=== PATIENT | male | born 1950 | race Caucasian/White ===

== ENCOUNTER 2016-10-17 16:54 | Emergency (ER) | payer MEDICARE, OTHER ==
[~2016-10-17] VITALS: Ht 182.9 cm; Wt 108.9 kg
[~2016-10-17 16:54] MED LIST: ASPI-407 PO; ASPI81CH43; ASPITAB37 PO; DICL100T2 PO; FLUT50SP13; LACT12CR17 EX; LORA10CA7 PO; NyQuil; TRAZ50TA2 PO; TRIA0.1C5 EX; ZOLP-158; [UNRECOGNIZED DRUG - CODE] PO
[2016-10-17 18:34] VITALS: BP 139/86
== END 2016-10-17 20:30 | disposition home or self-care (01) ==
LOC: ER 17:09 → EDUNIT# 17:09 → ER 20:30
DX: M54.16 Radiculopathy, lumbar region (principal); M54.5 Low back pain; G89.29 Other chronic pain
CPT/HCPCS: 72100

== ENCOUNTER → 2017-12-29 | Outpatient (CLI) | payer MEDICARE, OTHER ==
[~2017-12-29] MED LIST changes: -DICL100T2 PO; +DICL100T4 PO; +TRIA0.1C4 EX; -TRIA0.1C5 EX
[2017-12-29 10:55] LABS: Basophils # (auto) 0.1 uL; Eosinophils # (auto) 0.2 uL; Eosinophils % (auto) 4.7 % (0.0-7.0); Hematocrit 48.3 % (41.0-53.0); Hemoglobin 16.4 g/dL (13.5-17.5); Lymphocytes # (auto) 1.4 uL; Lymphocytes % (auto) 26.9 % (10.0-50.0); Mean Corpuscular Hemoglobin 30.4 pg (28.0-32.0); Mean Corpuscular Volume 89.6 fL (80.0-100.0); Monocytes # (auto) 0.4 uL; Monocytes % (auto) 7.2 % (0.0-12.0); Neutrophils # (auto) 3.2 uL; Neutrophils % (auto) 60.2 % (37.0-80.0); Nucleated Red Blood Cells % 0.1 %; Platelet Count (auto) 223 10^3/uL (140-450); Red Blood Cells 5.39 10^6/uL (4.5-5.90); Red Cell Distribution Width 13.3 % (11.8-14.3); White Blood Cell 5.3 10^3/uL (4.4-10.8)
[2017-12-29 11:36] LABS: BUN/Creatinine Ratio 11.7; Calcium 9.2 mg/dL (8.5-10.1); Potassium 4.1 mmol/L (3.5-5.1); Total Protein 7.7 g/dL (6.4-8.2)
[2017-12-29 11:40] LABS: Free T4 (Free Thyroxine) 1.08 ng/dL (0.89-1.76); Prostate Specific Antigen 0.81 ng/mL (0.0-4.0)
== END | disposition home or self-care (01) ==
LOC: LAB 10:30
PROVIDERS: ATTEND Internal Medicine
DX: N40.0 Benign prostatic hyperplasia without lower urinary tract symptoms (principal); M25.50 Pain in unspecified joint; R53.83 Other fatigue; Z79.82 Long term (current) use of aspirin; Z79.899 Other long term (current) drug therapy
CPT/HCPCS: 36415; 80053; 80061; 84153; 84439; 84443; 85025; 85652

== ENCOUNTER 2018-02-05 08:54 | Day surgery (SDC) | payer MEDICARE, OTHER ==
[2018-02-02 15:06] LABS: Basophils # (auto) 0.1 uL; Basophils % (auto) 1.2 % (0.0-2.0); Eosinophils # (auto) 0.2 uL; Eosinophils % (auto) 4.4 % (0.0-7.0); Hematocrit 46.9 % (41.0-53.0); Hemoglobin 15.7 g/dL (13.5-17.5); Lymphocytes # (auto) 1.6 uL; Lymphocytes % (auto) 33.1 % (10.0-50.0); Mean Corpuscular Hemoglobin 30.2 pg (28.0-32.0); Mean Corpuscular Hgb Conc. 33.4 g/dL (32.0-36.0); Mean Corpuscular Volume 90.4 fL (80.0-100.0); Monocytes # (auto) 0.4 uL; Monocytes % (auto) 7.7 % (0.0-12.0); Neutrophils # (auto) 2.5 uL; Neutrophils % (auto) 53.6 % (37.0-80.0); Platelet Count (auto) 204 10^3/uL (140-450); Red Blood Cells 5.19 10^6/uL (4.5-5.90); Red Cell Distribution Width 13.4 % (11.8-14.3); White Blood Cell 4.7 10^3/uL (4.4-10.8)
[2018-02-02 15:20] LABS: INR 0.98 (0.9-1.15); Partial Thromboplastin Time 27.4 sec (22.64-33.71); Prothrombin Time 10.7 sec (9.37-12.3)
[~2018-02-05] VITALS: Ht 182.9 cm; Wt 107.5 kg
[~2018-02-05 08:54] MED LIST changes: -ASPI-407 PO; -ASPI81CH43; -ASPITAB37 PO; -LACT12CR17 EX; -LORA10CA7 PO; +MULTCAP OR; -NyQuil; +OME20T PO; +PHEN1LIQ39 PO; -TRAZ50TA2 PO; -TRIA0.1C4 EX; -ZOLP-158
[2018-02-05] MEDS ORDERED: SODIUM CHLORIDE LOCK 10 ML ONE (09:03)
[2018-02-05] MEDS ORDERED: diphenhdrAMINE HCL 50 MG/1 ML VL ONE (09:04)
[2018-02-05] MEDS: MIDAZOLAM HCL 5 MG/ML-1ML VIAL ONE ×3 (09:57→10:09)
[2018-02-05] MEDS: fentaNYL CITRATE 100 MCG/2 ML VL ONE ×3 (09:57→10:09)
[2018-02-05] MEDS ORDERED: SIMETHICONE 40 MG/0.6 ML ORAL DROP ONE (10:12)
[2018-02-05 10:46] VITALS: BP 142/83
== END 2018-02-05 10:58 | disposition home or self-care (01) ==
LOC: GI 08:54
PROVIDERS: ATTEND Internal Medicine Gastroenterology
DX: Z12.11 Encounter for screening for malignant neoplasm of colon (principal); K57.30 Diverticulosis of large intestine without perforation or abscess without bleeding; K64.8 Other hemorrhoids; E66.9 Obesity, unspecified; Z68.32 Body mass index [BMI] 32.0-32.9, adult; Z87.891 Personal history of nicotine dependence; Z90.49 Acquired absence of other specified parts of digestive tract
CPT/HCPCS: 36415; 85025; 85610; 85730; J1200; J2250; J3010; J7030; G0121; G0500

== ENCOUNTER → 2018-05-04 | Outpatient (CLI) | payer MEDICARE, OTHER ==
[2018-05-04 15:38] LABS: Urine Bacteria NONE SEEN /hpf (None Seen); Urine Blood Negative /uL (Negative); Urine Mucus FEW (None Seen); Urine Specific Gravity 1.005 (1.001-1.035); Urine WBC <1 /hpf (0 - 3)
== END | disposition home or self-care (01) ==
LOC: LAB 15:17
PROVIDERS: ATTEND Internal Medicine
DX: N40.0 Benign prostatic hyperplasia without lower urinary tract symptoms (principal)
CPT/HCPCS: 81001

== ENCOUNTER → 2019-04-19 | Outpatient (CLI) | payer MEDICARE, OTHER ==
[~2019-04-19] MED LIST changes: -DICL100T4 PO; +DICL100T5 PO
[2019-04-19 10:52] LABS: Basophils # (auto) 0 uL; Eosinophils # (auto) 0.1 uL; Eosinophils % (auto) 2.9 % (0.0-7.0); Hematocrit 47.2 % (41.0-53.0); Hemoglobin 15.9 g/dL (13.5-17.5); Lymphocytes # (auto) 1.6 uL; Lymphocytes % (auto) 32.3 % (10.0-50.0); Mean Corpuscular Hemoglobin 30.6 pg (28.0-32.0); Mean Corpuscular Hgb Conc. 33.7 g/dL (32.0-36.0); Mean Corpuscular Volume 90.9 fL (80.0-100.0); Monocytes # (auto) 0.4 uL; Monocytes % (auto) 7.4 % (0.0-12.0); Neutrophils # (auto) 2.8 uL; Neutrophils % (auto) 56.4 % (37.0-80.0); Platelet Count (auto) 204 10^3/uL (140-450); Red Blood Cells 5.19 10^6/uL (4.5-5.90); Red Cell Distribution Width 13.7 % (11.8-14.3); White Blood Cell 4.9 10^3/uL (4.4-10.8)
[2019-04-19 11:02] LABS: Urine Bacteria NONE SEEN /hpf (None Seen); Urine Blood Negative /uL (Negative); Urine Mucus FEW (None Seen); Urine Specific Gravity 1.021 (1.001-1.035); Urine WBC <1 /hpf (0 - 3)
[2019-04-19 11:17] LABS: Potassium 3.9 mmol/L (3.5-5.1)
[2019-04-19 11:49] LABS: Free T4 (Free Thyroxine) 1.02 ng/dL (0.89-1.76); Prostate Specific Antigen 1.02 ng/mL (0.0-4.0)
[2019-04-19 11:50] LABS: Albumin 3.9 g/dL (3.4-5.0); BUN/Creatinine Ratio 9.1; Bilirubin, Total 0.8 mg/dL (0.2-1.0); Calcium 9.1 mg/dL (8.5-10.1); Total Protein 7.5 g/dL (6.4-8.2)
== END | disposition home or self-care (01) ==
LOC: LAB 10:07
PROVIDERS: ATTEND Internal Medicine
DX: N39.43 Post-void dribbling (principal); R53.83 Other fatigue; N28.1 Cyst of kidney, acquired; N40.0 Benign prostatic hyperplasia without lower urinary tract symptoms; R79.89 Other specified abnormal findings of blood chemistry
CPT/HCPCS: 36415; 80053; 80061; 81001; 84153; 84439; 84443; 85025; 85652

== ENCOUNTER → 2019-08-22 | Outpatient (CLI) | payer MEDICARE, OTHER ==
[~2019-08-22] MED LIST changes: +MULT-830 OR; -MULTCAP OR
[2019-08-22 12:10] LABS: Urine Bacteria None Seen /hpf (None Seen); Urine WBC None Seen /hpf (0 - 3)
[2019-08-22 12:41] LABS: Basophils # (auto) 0 uL; Basophils % (auto) 0.8 % (0.0-2.0); Eosinophils # (auto) 0.2 uL; Eosinophils % (auto) 3.8 % (0.0-7.0); Hematocrit 45.8 % (41.0-53.0); Hemoglobin 15.5 g/dL (13.5-17.5); Lymphocytes # (auto) 1.7 uL; Lymphocytes % (auto) 28.6 % (10.0-50.0); Mean Corpuscular Hemoglobin 30.4 pg (28.0-32.0); Mean Corpuscular Hgb Conc. 33.8 g/dL (32.0-36.0); Monocytes # (auto) 0.4 uL; Monocytes % (auto) 6.7 % (0.0-12.0); Neutrophils # (auto) 3.5 uL; Neutrophils % (auto) 60.1 % (37.0-80.0); Nucleated Red Blood Cells % 0.1 %; Platelet Count (auto) 205 10^3/uL (140-450); Red Blood Cells 5.09 10^6/uL (4.5-5.90); Red Cell Distribution Width 13.2 % (11.8-14.3); White Blood Cell 5.9 10^3/uL (4.4-10.8)
[2019-08-22 13:00] LABS: INR 1.05 (0.9-1.15)
[2019-08-22 13:18] LABS: Urine Blood Negative /uL (Negative)
[2019-08-22 13:46] LABS: Potassium 4.3 mmol/L (3.5-5.1)
[2019-08-22 13:56] LABS: Albumin 4.1 g/dL (3.4-5.0); BUN/Creatinine Ratio 19.6; Bilirubin, Total 0.8 mg/dL (0.2-1.0); Calcium 8.8 mg/dL (8.5-10.1); Total Protein 7.2 g/dL (6.4-8.2)
== END | disposition home or self-care (01) ==
LOC: LAB 11:39
PROVIDERS: ATTEND Internal Medicine
DX: Z01.812 Encounter for preprocedural laboratory examination (principal); M17.10 Unilateral primary osteoarthritis, unspecified knee
CPT/HCPCS: 36415; 80053; 81001; 85025; 85610; 85652; 86900; 86901

== ENCOUNTER → 2019-08-23 | Outpatient (CLI) | payer MEDICARE, OTHER | END | disposition home or self-care (01) | LOC: Rad HDHVI 12:53 | PROVIDERS: ATTEND Internal Medicine Cardiovascular Disease | DX: R00.2 Palpitations (principal); R07.9 Chest pain, unspecified | CPT/HCPCS: 93306 ==

== ENCOUNTER → 2020-01-02 | Outpatient (CLI) | payer MEDICARE, OTHER ==
[2020-01-02 16:04] LABS: Basophils # (auto) 0.1 10 ^3/uL (0-0.2); Eosinophils # (auto) 0.3 10 ^3/uL (0-0.8); Eosinophils % (auto) 5.2 % (0.0-7.0); Hematocrit 41.8 % (41.0-53.0); Lymphocytes # (auto) 1.4 10 ^3/uL (0.4-5.4); Mean Corpuscular Hgb Conc. 33.5 g/dL (32.0-36.0); Mean Corpuscular Volume 86.6 fL (80.0-100.0); Monocytes # (auto) 0.4 10 ^3/uL (0-1.3); Monocytes % (auto) 7.3 % (0.0-12.0); Neutrophils # (auto) 3.1 10 ^3/uL (1.6-8.6); Neutrophils % (auto) 60.5 % (37.0-80.0); Nucleated Red Blood Cells % 0.1 %; Platelet Count (auto) 231 10^3/uL (140-450); Red Blood Cells 4.83 10^6/uL (4.5-5.90); Red Cell Distribution Width 13.8 % (11.8-14.3); White Blood Cell 5.2 10^3/uL (4.4-10.8)
[2020-01-02 16:21] LABS: Albumin 3.6 g/dL (3.4-5.0); Calcium 8.7 mg/dL (8.5-10.1); Potassium 3.9 mmol/L (3.5-5.1)
[2020-01-02 16:25] LABS: BUN/Creatinine Ratio 12.1; Bilirubin, Total 0.5 mg/dL (0.2-1.0); Total Protein 7.5 g/dL (6.4-8.2)
== END | disposition home or self-care (01) ==
LOC: LAB 15:24
PROVIDERS: ATTEND Internal Medicine
DX: R06.00 Dyspnea, unspecified (principal); R53.83 Other fatigue
CPT/HCPCS: 36415; 80053; 85025; 85379; 85652

== ENCOUNTER 2020-01-03 14:52 | Inpatient (IN) | payer MEDICARE, OTHER ==
[~2020-01-03] VITALS: Ht 182.9 cm; Wt 89.6 kg
[2020-01-03 15:45] LABS: Basophils # (auto) 0.1 10 ^3/uL (0-0.2); Basophils % (auto) 1.1 % (0.0-2.0); Eosinophils # (auto) 0.2 10 ^3/uL (0-0.8); Eosinophils % (auto) 4.4 % (0.0-7.0); Hemoglobin 14.3 g/dL (13.5-17.5); Lymphocytes # (auto) 1.3 10 ^3/uL (0.4-5.4); Lymphocytes % (auto) 25.9 % (10.0-50.0); Mean Corpuscular Hemoglobin 29.4 pg (28.0-32.0); Mean Corpuscular Hgb Conc. 33.9 g/dL (32.0-36.0); Mean Corpuscular Volume 86.7 fL (80.0-100.0); Monocytes # (auto) 0.4 10 ^3/uL (0-1.3); Monocytes % (auto) 7.1 % (0.0-12.0); Neutrophils # (auto) 3.1 10 ^3/uL (1.6-8.6); Neutrophils % (auto) 61.5 % (37.0-80.0); Nucleated Red Blood Cells % 0.1 %; Platelet Count (auto) 220 10^3/uL (140-450); Red Blood Cells 4.84 10^6/uL (4.5-5.90); Red Cell Distribution Width 14.2 % (11.8-14.3)
[2020-01-03 16:07] LABS: Albumin 3.5 g/dL (3.4-5.0); Anion Gap 9 (5-15); Blood Urea Nitrogen 14 mg/dL (7-18); Calcium 8.6 mg/dL (8.5-10.1); Carbon Dioxide 24 mmol/L (21-32); Chloride 108 mmol/L (98-107); Glucose 115 mg/dL (74-106); Potassium 3.7 mmol/L (3.5-5.1); Sodium 141 mmol/L (136-145)
[2020-01-03 16:09] LABS: Alanine Aminotransferase 18 U/L (16-61); Aspartate Aminotransferase 15 U/L (15-37); BUN/Creatinine Ratio 16.5; GFR African American 114 mL/min; GFR Non-African American 94 mL/min
[2020-01-03 16:14] LABS: Alkaline Phosphatase 92 U/L (45-117); Bilirubin, Total 0.8 mg/dL (0.2-1.0); Total Protein 7.2 g/dL (6.4-8.2)
[2020-01-03] MEDS ORDERED: ASCORBIC ACID 500 MG TAB PO ONE (16:45)
[2020-01-03] MEDS ORDERED: cefTRIAXone 1GM/50ML D5W 50 ML IV ONE (16:45)
[2020-01-03] MEDS ORDERED: AZITHROMYCIN 500MG/ 250ML 250 ML IV ONE (16:45)
[2020-01-03] MEDS ORDERED: ZINC SULFATE 220mg CAP or TAB PO ONE (16:45)
[2020-01-03] MEDS ORDERED: NITROGLYCERIN 0.4 MG SL TAB SL PRN ×2 (17:15→19:45)
[2020-01-03] MEDS ORDERED: MORPHINE SULF INJ 2 MG/ML SYRINGE 1ML IV PRN (17:15)
[2020-01-03 18:15] LABS: INR 1.05 (0.9-1.15); Partial Thromboplastin Time 29.1 sec (23.64-32.05)
[2020-01-03 18:54] VITALS: BP 126/86
[2020-01-03] MEDS: SODIUM CHLORIDE 0.9% 1,000 ML IV SCH (19:42)
[2020-01-03] MEDS ORDERED: ONDANSETRON HCL 4 MG/2 ML VIAL IV PRN (19:45)
[2020-01-03] MEDS ORDERED: ACETAMINOPHEN 500 MG TAB PO PRN (19:45)
[2020-01-03] MEDS ORDERED: LORazepam 0.5 MG TAB PO PRN (19:45)
[2020-01-03] MEDS ORDERED: HYDROcodone-ACET 5/325MG TAB PO PRN (19:45)
[2020-01-03] MEDS ORDERED: DEXTROSE (50%) 50ML SYRG IV PRN (19:45)
[2020-01-03 21:00] VITALS: BP 133/83
[2020-01-03] MEDS: ATORVASTATIN 20 MG TAB PO SCH (21:03)
[2020-01-03] MEDS: ACCU-CHEK COMFORT CURVE STRIP VI SCH (21:04)
[2020-01-03] MEDS: METOPROLOL TARTRATE 25 MG TAB PO SCH (21:04)
[2020-01-03] MEDS ORDERED: InsuLIN REG 1unit/0.01ml Soln (100units/ml) SC SCH (22:00)
[2020-01-03] MEDS ORDERED: ALBUTEROL SULF HFA 90MCG INH 200DOSE IN SCH (22:00)
[2020-01-03 23:45] LABS: Basophils # (auto) 0 10 ^3/uL (0-0.2); Basophils % (auto) 0.9 % (0.0-2.0); Eosinophils # (auto) 0.2 10 ^3/uL (0-0.8); Eosinophils % (auto) 4.6 % (0.0-7.0); Hematocrit 43.2 % (41.0-53.0); Hemoglobin 14.6 g/dL (13.5-17.5); Lymphocytes # (auto) 1.4 10 ^3/uL (0.4-5.4); Lymphocytes % (auto) 27.8 % (10.0-50.0); Mean Corpuscular Hemoglobin 29.2 pg (28.0-32.0); Mean Corpuscular Hgb Conc. 33.7 g/dL (32.0-36.0); Mean Corpuscular Volume 86.7 fL (80.0-100.0); Monocytes # (auto) 0.4 10 ^3/uL (0-1.3); Monocytes % (auto) 7.5 % (0.0-12.0); Neutrophils # (auto) 2.9 10 ^3/uL (1.6-8.6); Neutrophils % (auto) 59.2 % (37.0-80.0); Platelet Count (auto) 205 10^3/uL (140-450); Red Blood Cells 4.99 10^6/uL (4.5-5.90); Red Cell Distribution Width 14.1 % (11.8-14.3)
[2020-01-03 23:53] LABS: Urine WBC None Seen /hpf (0 - 3)
[2020-01-03 23:58] LABS: Urine Specific Gravity 1.004 (1.001-1.035)
[2020-01-03 23:59] LABS: Urine Bacteria NONE SEEN /hpf (None Seen); Urine Blood Negative /uL (Negative); Urine Mucus FEW (None Seen)
[2020-01-04] VITALS: BP 123/82
[2020-01-04 00:01] LABS: Albumin 3.5 g/dL (3.4-5.0); Calcium 8.6 mg/dL (8.5-10.1); Magnesium 2.2 mg/dL (1.6-2.6); Potassium 3.5 mmol/L (3.5-5.1)
[2020-01-04 00:14] LABS: BUN/Creatinine Ratio 17.1; Bilirubin, Total 0.4 mg/dL (0.2-1.0); CRP High Sensitivity 0.15 mg/dL (< 0.3); Total Protein 7.3 g/dL (6.4-8.2)
[2020-01-04 05:00] VITALS: BP_SYST 123; BP_SYST 129; BP_DIAS 82; BP_DIAS 85
[2020-01-04] MEDS: ACCU-CHEK COMFORT CURVE STRIP VI SCH (06:00)
[2020-01-04 06:45] LABS: Basophils # (auto) 0.1 10 ^3/uL (0-0.2); Eosinophils # (auto) 0.3 10 ^3/uL (0-0.8); Eosinophils % (auto) 5.4 % (0.0-7.0); Lymphocytes # (auto) 1.7 10 ^3/uL (0.4-5.4); Lymphocytes % (auto) 32.1 % (10.0-50.0); Mean Corpuscular Hemoglobin 29.4 pg (28.0-32.0); Mean Corpuscular Hgb Conc. 33.5 g/dL (32.0-36.0); Mean Corpuscular Volume 87.9 fL (80.0-100.0); Monocytes # (auto) 0.4 10 ^3/uL (0-1.3); Monocytes % (auto) 7.5 % (0.0-12.0); Neutrophils # (auto) 2.8 10 ^3/uL (1.6-8.6); Nucleated Red Blood Cells % 0.1 %; Platelet Count (auto) 213 10^3/uL (140-450); Red Blood Cells 4.77 10^6/uL (4.5-5.90); Red Cell Distribution Width 14.6 % (11.8-14.3); White Blood Cell 5.2 10^3/uL (4.4-10.8)
[2020-01-04] MEDS ORDERED: InsuLIN REG 1unit/0.01ml Soln (100units/ml) SC SCH (07:00)
[2020-01-04 07:37] LABS: BUN/Creatinine Ratio 16.3; Bilirubin, Total 0.7 mg/dL (0.2-1.0); Calcium 8.3 mg/dL (8.5-10.1); Phosphorus 3.1 mg/dL (2.5-4.90); Potassium 3.5 mmol/L (3.5-5.1)
[2020-01-04 07:38] LABS: Albumin 3.2 g/dL (3.4-5.0); CRP High Sensitivity 0.139 mg/dL (< 0.3); Magnesium 2.5 mg/dL (1.6-2.6)
[2020-01-04] MEDS: cefTRIAXone 1GM/50ML D5W 50 ML IV SCH (09:10)
[2020-01-04] MEDS: ASPirin 81 mg TAB PO SCH (09:11)
[2020-01-04] MEDS: DOCUSATE SOD 100 MG CAP PO SCH (09:11)
[2020-01-04] MEDS: METOPROLOL TARTRATE 25 MG TAB PO SCH ×2 (09:14→22:00)
[2020-01-04] MEDS: ENOXAPARIN SOD 40 MG/0.4 ML SYRINGE SC SCH (09:14)
[2020-01-04] MEDS ORDERED: CHOLECALCIFEROL (VITD3) 1,000IU=25mCg TAB PO SCH (10:00)
[2020-01-04] MEDS ORDERED: AZITHROMYCIN 500MG/D5WorNS 250ml IV SCH (10:00)
[2020-01-04] MEDS ORDERED: ZINC SULFATE 220mg CAP or TAB PO SCH (10:00)
[2020-01-04] MEDS ORDERED: ASCORBIC ACID 1,000 MG TAB PO SCH (10:00)
[2020-01-04] MEDS: SODIUM CHLORIDE 0.9% 1,000 ML IV SCH (10:24)
[2020-01-04 12:00] VITALS: BP 120/74
[2020-01-04] MEDS ORDERED: IOHEXOL 350 MG/ML 100ML IJ ONE (17:30)
[2020-01-04 17:47] VITALS: BP 122/75
[2020-01-04] MEDS: ATORVASTATIN 20 MG TAB PO SCH (21:28)
[2020-01-04 22:00] VITALS: BP 118/80
[2020-01-05 05:00] VITALS: BP 116/74
[2020-01-05 09:00] VITALS: BP 129/89
[2020-01-05] MEDS: METOPROLOL TARTRATE 25 MG TAB PO SCH ×2 (09:45→21:57)
[2020-01-05] MEDS: ENOXAPARIN SOD 40 MG/0.4 ML SYRINGE SC SCH (09:45)
[2020-01-05] MEDS: DOCUSATE SOD 100 MG CAP PO SCH (09:45)
[2020-01-05] MEDS: ASPirin 81 mg TAB PO SCH (09:45)
[2020-01-05] MEDS: cefTRIAXone 1GM/50ML D5W 50 ML IV SCH (09:45)
[2020-01-05] MEDS: AZITHROMYCIN 500MG/ 250ML 250 ML IV SCH (10:28)
[2020-01-05] MEDS ORDERED: ALBUTEROL SULF 2.5 MG/0.5ML(0.5%) NEB SOLN NEB PRN (12:15)
[2020-01-05] MEDS ORDERED: IPRATROPIUM BROM 0.5 MG/2.5ML INH SOL NEB PRN (12:15)
[2020-01-05 13:00] VITALS: BP 116/74
[2020-01-05 17:00] VITALS: BP 113/85
[2020-01-05 21:35] VITALS: BP 129/86
[2020-01-05 21:41] VITALS: BP 129/86
[2020-01-05] MEDS: ATORVASTATIN 20 MG TAB PO SCH (21:56)
[2020-01-05 22:01] LABS: Alcohol, Urine < 3.0 mg/dL (0-5); Amphetamine Screen, Urine NEGATIVE (NEGATIVE); Barbiturate Scree,Urine NEGATIVE (NEGATIVE); Benzodiazephine Screen, Urine NEGATIVE (NEGATIVE); Cannabinoid Screen, Urine NEGATIVE (NEGATIVE); Cocaine Screen, Urine NEGATIVE (NEGATIVE); Opiate Scree,Urine NEGATIVE (NEGATIVE); Phencyclidine Screen, Urine NEGATIVE (NEGATIVE)
[2020-01-06 05:00] VITALS: BP 125/85
[2020-01-06 08:33] VITALS: BP 102/71
[2020-01-06] MEDS: cefTRIAXone 1GM/50ML D5W 50 ML IV SCH (09:31)
[2020-01-06] MEDS: DOCUSATE SOD 100 MG CAP PO SCH (09:32)
[2020-01-06] MEDS: ENOXAPARIN SOD 40 MG/0.4 ML SYRINGE SC SCH (09:32)
[2020-01-06] MEDS: ASPirin 81 mg TAB PO SCH (09:33)
[2020-01-06] MEDS: METOPROLOL TARTRATE 25 MG TAB PO SCH (09:33)
[2020-01-06] MEDS: AZITHROMYCIN 500MG/ 250ML 250 ML IV SCH (10:30)
[2020-01-06 10:57] LABS: Folate (Folic Acid) > 24.00 ng/mL (5.38-24)
[2020-01-06] MEDS ORDERED: MELA3TAB42 OR (12:09)
[2020-01-06] MEDS ORDERED: IBUP400T21 PO (12:10)
[2020-01-06 12:54] VITALS: BP 109/74
[2020-01-06 13:00] VITALS: BP 109/74
== END 2020-01-06 14:02 | disposition home or self-care (01) | DRG 190 ==
LOC: ER 14:52 → TELE 14:53 → TELE-EAST 18:21 → TELE-CENTR 01-04 14:30
PROVIDERS: ADMIT Hospitalist; ATTEND Family Medicine
DX: J44.0 Chronic obstructive pulmonary disease with (acute) lower respiratory infection (principal); J15.9 Unspecified bacterial pneumonia; J98.11 Atelectasis; J44.1 Chronic obstructive pulmonary disease with (acute) exacerbation; Z96.653 Presence of artificial knee joint, bilateral; I10 Essential (primary) hypertension; Z87.891 Personal history of nicotine dependence; Z03.818 Encounter for observation for suspected exposure to other biological agents ruled out; G89.29 Other chronic pain
CPT/HCPCS: 36415; 71045; 71250; 71275; 80053; 80061; 80307; 81001; 82728; 82746; 82962; 83036; 83605; 83615; 83735; 83880; 84100; 84443; 84484; 85025; 85379; 85610; 85652; 85730; 86141; 87040; 87070; 87086; 87804; 87880; 93005; 93970; G0378; J0696

== ENCOUNTER → 2020-06-01 | Outpatient (CLI) | payer MEDICARE, OTHER ==
[~2020-06-01] MED LIST changes: -DICL100T5 PO; +IBUP400T21 PO; +MELA3TAB42 OR; -OME20T PO; -[UNRECOGNIZED DRUG - CODE] PO
[2020-06-01 15:57] LABS: Urine Bacteria NONE SEEN /hpf (None Seen); Urine Blood Negative /uL (Negative); Urine Specific Gravity 1.013 (1.001-1.035); Urine WBC 1 /hpf (0 - 3)
== END | disposition home or self-care (01) ==
LOC: LAB 15:13
PROVIDERS: ATTEND Internal Medicine
DX: R35.1 Nocturia (principal)
CPT/HCPCS: 81001; 84153

== ENCOUNTER → 2020-07-17 | Day surgery (SDC) | payer MEDICARE, OTHER ==
[2020-07-14 13:08] LABS: Basophils # (auto) 0.1 10 ^3/uL (0-0.2); Eosinophils # (auto) 0.3 10 ^3/uL (0-0.8); Eosinophils % (auto) 6.1 % (0.0-7.0); Hematocrit 45.7 % (41.0-53.0); Hemoglobin 15.4 g/dL (13.5-17.5); Lymphocytes # (auto) 1.5 10 ^3/uL (0.4-5.4); Lymphocytes % (auto) 30.1 % (10.0-50.0); Mean Corpuscular Hemoglobin 30.4 pg (28.0-32.0); Mean Corpuscular Hgb Conc. 33.8 g/dL (32.0-36.0); Monocytes # (auto) 0.4 10 ^3/uL (0-1.3); Neutrophils # (auto) 2.7 10 ^3/uL (1.6-8.6); Neutrophils % (auto) 54.8 % (37.0-80.0); Nucleated Red Blood Cells % 0.1 %; Platelet Count (auto) 214 10^3/uL (140-450); Red Blood Cells 5.08 10^6/uL (4.5-5.90); Red Cell Distribution Width 13.8 % (11.8-14.3)
[2020-07-14 13:13] LABS: Urine Bacteria NONE SEEN /hpf (None Seen); Urine Blood Negative /uL (Negative); Urine Mucus FEW (None Seen); Urine Specific Gravity 1.021 (1.001-1.035); Urine WBC 1 /hpf (0 - 3)
[2020-07-14 13:24] LABS: INR 1.03 (0.9-1.15); Partial Thromboplastin Time 27.6 sec (23.0-31.2)
[2020-07-14 13:48] LABS: Calcium 8.7 mg/dL (8.5-10.1); Potassium 3.8 mmol/L (3.5-5.1)
[2020-07-14 13:52] LABS: BUN/Creatinine Ratio 15.6; Bilirubin, Total 0.6 mg/dL (0.2-1.0); Total Protein 7.3 g/dL (6.4-8.2)
[~2020-07-17] VITALS: Ht 182.9 cm; Wt 99.3 kg
[~2020-07-17] MED LIST changes: +ASPI-543 PO; -FLUT50SP13; +GLYCOPYRROLATE 0.2 MG/ML 1ML VIAL ONE; +HYDROmorphone HCL 2 MG/ML VL IV PRN; -IBUP400T21 PO; +LIDOCAINE 1% HCL (LOCAL ANESTH.) INJ 20ML MDV ONE; +LIDOCAINE 2% (LOCAL ANESTH.) PF 5ml SDV ONE; -MELA3TAB42 OR; +MIDAZOLAM HCL 1MG/1ML-2 ML VIAL ONE; +ONDANSETRON HCL 4 MG/2 ML VIAL IV PRN; +ONDANSETRON HCL 4 MG/2 ML VIAL ONE; -PHEN1LIQ39 PO; +PROPOFOL 10 MG/ML 20 ML IV ONE; +ceFAZolin 1GM/50ML 50 ML IV ONE
[2020-07-17 10:45] VITALS: BP 141/86
== END | disposition home or self-care (01) ==
LOC: SUR 05:54
PROVIDERS: ATTEND Surgery
DX: I83.891 Varicose veins of right lower extremity with other complications (principal); G47.30 Sleep apnea, unspecified; F32.9 Major depressive disorder, single episode, unspecified; Z90.49 Acquired absence of other specified parts of digestive tract; Z87.891 Personal history of nicotine dependence; Z79.82 Long term (current) use of aspirin; Z98.890 Other specified postprocedural states; Z79.899 Other long term (current) drug therapy; Z20.828 Contact with and (suspected) exposure to other viral communicable diseases
CPT/HCPCS: 36415; 37785; 80053; 81001; 85025; 85610; 85730; 87426; J0690; J2001; J2250; J2405; J2704; J7030

== ENCOUNTER → 2022-04-27 | Outpatient (CLI) | payer MEDICARE, OTHER ==
[~2022-04-27] MED LIST changes: -GLYCOPYRROLATE 0.2 MG/ML 1ML VIAL ONE; -HYDROmorphone HCL 2 MG/ML VL IV PRN; -LIDOCAINE 1% HCL (LOCAL ANESTH.) INJ 20ML MDV ONE; -LIDOCAINE 2% (LOCAL ANESTH.) PF 5ml SDV ONE; -MIDAZOLAM HCL 1MG/1ML-2 ML VIAL ONE; -ONDANSETRON HCL 4 MG/2 ML VIAL IV PRN; -ONDANSETRON HCL 4 MG/2 ML VIAL ONE; -PROPOFOL 10 MG/ML 20 ML IV ONE; -ceFAZolin 1GM/50ML 50 ML IV ONE
[2022-04-27 12:30] LABS: Basophils # (auto) 0 10 ^3/uL (0-0.2); Eosinophils # (auto) 0.3 10 ^3/uL (0-0.8); Eosinophils % (auto) 7.1 % (0.0-7.0); Hematocrit 44.1 % (41.0-53.0); Hemoglobin 14.2 g/dL (13.5-17.5); Lymphocytes # (auto) 1.1 10 ^3/uL (0.4-5.4); Lymphocytes % (auto) 30.4 % (10.0-50.0); Mean Corpuscular Hemoglobin 29.3 pg (28.0-32.0); Mean Corpuscular Hgb Conc. 32.2 g/dL (32.0-36.0); Monocytes # (auto) 0.2 10 ^3/uL (0-1.3); Monocytes % (auto) 6.7 % (0.0-12.0); Neutrophils % (auto) 54.8 % (37.0-80.0); Red Blood Cells 4.85 10^6/uL (4.5-5.90); Red Cell Distribution Width 14.1 % (11.8-14.3); White Blood Cell 3.6 10^3/uL (4.4-10.8)
[2022-04-27 12:41] LABS: Urine Bacteria NONE SEEN /hpf (None Seen); Urine Blood Negative /uL (Negative); Urine Mucus FEW (None Seen); Urine Specific Gravity 1.021 (1.001-1.035); Urine WBC 1 /hpf (0 - 3)
[2022-04-27 12:56] LABS: BUN/Creatinine Ratio 12.8; Calcium 9.2 mg/dL (8.5-10.1); Potassium 4.9 mmol/L (3.5-5.1)
[2022-04-27 13:00] LABS: Bilirubin, Total 1.3 mg/dL (0.2-1.0); Total Protein 7.2 g/dL (6.4-8.2)
[2022-04-27 13:56] LABS: Free T4 (Free Thyroxine) 0.93 ng/dL (0.89-1.76)
[2022-04-27 13:57] LABS: Prostate Specific Antigen 1.02 ng/mL (0.0-4.0)
== END | disposition home or self-care (01) ==
LOC: LAB 12:13
PROVIDERS: ATTEND Internal Medicine
DX: N40.0 Benign prostatic hyperplasia without lower urinary tract symptoms (principal); I83.90 Asymptomatic varicose veins of unspecified lower extremity; M54.50 Low back pain, unspecified; I10 Essential (primary) hypertension
CPT/HCPCS: 36415; 80053; 80061; 81001; 82550; 82607; 84153; 84439; 84443; 85025; 85652

== ENCOUNTER → 2022-05-25 | Outpatient (CLI) | payer MEDICARE, OTHER ==
[2022-05-25 14:59] LABS: Basophils # (auto) 0 10 ^3/uL (0-0.2); Eosinophils # (auto) 0.3 10 ^3/uL (0-0.8); Eosinophils % (auto) 6.3 % (0.0-7.0); Hematocrit 45.1 % (41.0-53.0); Hemoglobin 14.7 g/dL (13.5-17.5); Lymphocytes % (auto) 24.4 % (10.0-50.0); Mean Corpuscular Hemoglobin 29.3 pg (28.0-32.0); Mean Corpuscular Hgb Conc. 32.5 g/dL (32.0-36.0); Mean Corpuscular Volume 90.1 fL (80.0-100.0); Monocytes # (auto) 0.3 10 ^3/uL (0-1.3); Monocytes % (auto) 7.5 % (0.0-12.0); Neutrophils # (auto) 2.5 10 ^3/uL (1.6-8.6); Neutrophils % (auto) 60.8 % (37.0-80.0); White Blood Cell 4.2 10^3/uL (4.4-10.8)
== END | disposition home or self-care (01) ==
LOC: LAB 14:38
PROVIDERS: ATTEND Internal Medicine
DX: D72.819 Decreased white blood cell count, unspecified (principal)
CPT/HCPCS: 36415; 83615; 85025

== ENCOUNTER → 2022-11-17 | Outpatient (CLI) | payer MEDICARE, OTHER | END | disposition home or self-care (01) | LOC: Rad HDHVI 14:32 | PROVIDERS: ATTEND Internal Medicine Cardiovascular Disease | DX: R00.1 Bradycardia, unspecified (principal); R94.31 Abnormal electrocardiogram [ECG] [EKG] | CPT/HCPCS: 93306 ==

== ENCOUNTER → 2022-11-18 | Outpatient (CLI) | payer MEDICARE, OTHER ==
[~2022-11-18] VITALS: Ht 182.9 cm; Wt 83.5 kg
== END | disposition home or self-care (01) ==
LOC: Rad HDHVI 08:23
PROVIDERS: ATTEND Internal Medicine Cardiovascular Disease
DX: Z01.810 Encounter for preprocedural cardiovascular examination (principal); E78.5 Hyperlipidemia, unspecified; E78.00 Pure hypercholesterolemia, unspecified
CPT/HCPCS: 78452; 93017; 96374; A9500

== ENCOUNTER 2022-12-21 08:27 | Day surgery (SDC) | payer MEDICARE, OTHER ==
[2022-12-19 16:04] LABS: Urine WBC None Seen /hpf (0 - 3)
[2022-12-19 16:07] LABS: Basophils # (auto) 0 10 ^3/uL (0-0.2); Basophils % (auto) 0.9 % (0.0-2.0); Eosinophils # (auto) 0.2 10 ^3/uL (0-0.8); Eosinophils % (auto) 4.9 % (0.0-7.0); Hematocrit 42.9 % (41.0-53.0); Hemoglobin 14.3 g/dL (13.5-17.5); Lymphocytes # (auto) 1.2 10 ^3/uL (0.4-5.4); Mean Corpuscular Hemoglobin 30.1 pg (28.0-32.0); Mean Corpuscular Hgb Conc. 33.3 g/dL (32.0-36.0); Mean Corpuscular Volume 90.4 fL (80.0-100.0); Monocytes # (auto) 0.3 10 ^3/uL (0-1.3); Monocytes % (auto) 7.1 % (0.0-12.0); Neutrophils # (auto) 2.1 10 ^3/uL (1.6-8.6); Neutrophils % (auto) 55.1 % (37.0-80.0); Nucleated Red Blood Cells % 0.1 %; Red Blood Cells 4.75 10^6/uL (4.5-5.90); Red Cell Distribution Width 13.8 % (11.8-14.3); White Blood Cell 3.9 10^3/uL (4.4-10.8)
[2022-12-19 16:37] LABS: INR 1.08 (0.9-1.15); Partial Thromboplastin Time 30.5 sec (24.6-33.4)
[2022-12-19 16:52] LABS: Albumin 3.8 g/dL (3.4-5.0); Potassium 3.9 mmol/L (3.5-5.1)
[2022-12-19 16:58] LABS: Urine Bacteria NONE SEEN /hpf (None Seen); Urine Blood Negative /uL (Negative); Urine Specific Gravity 1.008 (1.001-1.035)
[2022-12-19 17:01] LABS: BUN/Creatinine Ratio 15.9 (10.0-20.0); Bilirubin, Total 0.6 mg/dL (0.2-1.0); Total Protein 7.6 g/dL (6.4-8.2)
[~2022-12-21] VITALS: Ht 182.9 cm; Wt 83.5 kg
[~2022-12-21 08:27] MED LIST changes: -ASPI-543 PO; +BUPIVACAINE IMPLANT 3x100mg IL ONE; +LACT10SO3 PO; +MELA3TAB27 PO; +MULT1POW PO; +TRIA0.02 EX
[2022-12-21] MEDS ORDERED: LIDOCAINE 2% (LOCAL ANESTH.) PF 5ml SDV ONE (09:33)
[2022-12-21] MEDS ORDERED: PROPOFOL 10 MG/ML 20 ML IV ONE (09:33)
[2022-12-21] MEDS ORDERED: MIDAZOLAM HCL 2MG/2ML 2ml VIAL (1mg/ml) ONE (09:33)
[2022-12-21] MEDS ORDERED: DexAMETHasone SOD PHOS 10MG/1ML VIAL INJ ONE (09:33)
[2022-12-21] MEDS ORDERED: fentaNYL CITRATE 100 MCG/2 ML VL ONE (09:33)
[2022-12-21] MEDS ORDERED: ONDANSETRON HCL 4 MG/2 ML VIAL ONE (09:33)
[2022-12-21] MEDS ORDERED: HYDROmorphone HCL 2 MG/ML VL/or syr ONE (09:33)
[2022-12-21] MEDS ORDERED: GLYCOPYRROLATE 0.2 MG/ML 1ML VIAL ONE (09:33)
[2022-12-21] MEDS ORDERED: ceFAZolin 1GM/50ML 100 ML IV ONE (09:33)
[2022-12-21] MEDS ORDERED: KETOROLAC TROMETH 30 MG/ML 1ML VIAL ONE (09:33)
[2022-12-21] MEDS ORDERED: MORPHINE SULFATE INJ 2 MG/ml SYRG IV PRN (09:45)
[2022-12-21] MEDS ORDERED: METOCLOPRAMIDE HCL 5MG/ml INJ 2ml VIAL IV PRN (09:45)
[2022-12-21] MEDS ORDERED: HYDROmorphone HCL 2 MG/ML VL/or syr IV PRN ×3 (09:45→12:45)
[2022-12-21] MEDS ORDERED: ePHEDrine SULFATE 50 MG/ML AMP ONE (11:44)
[2022-12-21] MEDS ORDERED: MEPERIDINE HCL (50 MG/ML) 1 ML VIAL ONE (11:46)
[2022-12-21] MEDS ORDERED: ONDANSETRON HCL 4 MG/2 ML VIAL IV PRN (12:45)
[2022-12-21 13:10] VITALS: BP 100/72
== END 2022-12-21 14:25 | disposition home or self-care (01) ==
LOC: SUR 08:27
PROVIDERS: ATTEND Surgery
DX: K40.90 Unilateral inguinal hernia, without obstruction or gangrene, not specified as recurrent (principal); J18.9 Pneumonia, unspecified organism; F32.A Depression, unspecified; K64.9 Unspecified hemorrhoids; Z90.49 Acquired absence of other specified parts of digestive tract; Z87.891 Personal history of nicotine dependence; Z98.890 Other specified postprocedural states; Z20.822 Contact with and (suspected) exposure to COVID-19
CPT/HCPCS: 36415; 49505; 80053; 81001; 85025; 85610; 85730; 86850; 86900; 86901; C1781; C9089; J0690; J1100; J1885; J2001; J2175; J2250; J2405; J2704; J3010; U0003

== ENCOUNTER → 2023-06-19 | Outpatient (CLI) | payer MEDICARE, OTHER ==
[~2023-06-19] MED LIST changes: -BUPIVACAINE IMPLANT 3x100mg IL ONE
== END | disposition home or self-care (01) ==
LOC: LAB 11:17
PROVIDERS: ATTEND Internal Medicine
DX: R10.9 Unspecified abdominal pain (principal); R35.1 Nocturia; N40.0 Benign prostatic hyperplasia without lower urinary tract symptoms
CPT/HCPCS: 36415; 82565; 84153; 84520

== ENCOUNTER → 2023-07-24 | Outpatient (CLI) | payer MEDICARE, OTHER | END | disposition home or self-care (01) | LOC: Rad HDHVI 12:56 | PROVIDERS: ATTEND Internal Medicine Cardiovascular Disease | DX: I65.23 Occlusion and stenosis of bilateral carotid arteries (principal); I10 Essential (primary) hypertension | CPT/HCPCS: 93880 ==

== ENCOUNTER → 2024-02-27 | Outpatient (CLI) | payer MEDICARE, OTHER | END | disposition home or self-care (01) | LOC: Rad HDHVI 13:50 | PROVIDERS: ATTEND Internal Medicine Cardiovascular Disease | DX: I77.810 Thoracic aortic ectasia (principal); I51.7 Cardiomegaly; R00.2 Palpitations; R00.1 Bradycardia, unspecified | CPT/HCPCS: 93306 ==

== ENCOUNTER 2024-03-08 13:36 | Emergency (ER) | payer MEDICARE, OTHER ==
[~2024-03-08] VITALS: Ht 182.9 cm; Wt 81.8 kg
[2024-03-08] MEDS ORDERED: HYDR-4902 PO (15:52)
[2024-03-08 19:45] VITALS: TEMP 98
[2024-03-08] MEDS: HYDROcodone-ACET 10/325MG TAB PO ONE (19:45)
[2024-03-08 19:49] VITALS: PULSE 62; RESP 13; O2SAT 97
[2024-03-08 22:00] VITALS: BP 127/80; PULSE 61; RESP 17; O2SAT 94
== END 2024-03-09 02:49 | disposition home or self-care (01) ==
LOC: EDBD 13:36 → ER 13:36
DX: M25.562 Pain in left knee (principal); X58.XXXA Exposure to other specified factors, initial encounter; Y93.89 Activity, other specified; Y92.090 Kitchen in other non-institutional residence as the place of occurrence of the external cause; Y99.8 Other external cause status
CPT/HCPCS: 73562

== ENCOUNTER → 2024-03-13 | Outpatient (CLI) | payer MEDICARE, OTHER ==
[~2024-03-13] MED LIST changes: +HYDR-4902 PO
== END | disposition home or self-care (01) ==
LOC: Rad HDHVI 13:29
PROVIDERS: ATTEND Internal Medicine Cardiovascular Disease
DX: M25.462 Effusion, left knee (principal); M25.562 Pain in left knee
CPT/HCPCS: 73700

== ENCOUNTER → 2024-04-09 | Outpatient (CLI) | payer MEDICARE, OTHER | END | disposition home or self-care (01) | LOC: LAB 15:50 | PROVIDERS: ATTEND Orthopaedic Surgery | DX: R94.4 Abnormal results of kidney function studies (principal) | CPT/HCPCS: 36415; 82565; 84520 ==

== ENCOUNTER → 2024-04-12 | Outpatient (CLI) | payer MEDICARE, OTHER ==
[~2024-04-12] MED LIST changes: +IOHEXOL 350 MG/ML 100ML IJ ONE
[2024-04-12 11:39] VITALS: BP 99/77; PULSE 76; RESP 16; O2SAT 99
[2024-04-12 12:00] VITALS: BP 110/73; PULSE 70; RESP 16; O2SAT 95
== END | disposition home or self-care (01) ==
LOC: Rad HDHVI 11:24
PROVIDERS: ATTEND Internal Medicine Cardiovascular Disease
DX: K57.30 Diverticulosis of large intestine without perforation or abscess without bleeding (principal); N28.1 Cyst of kidney, acquired; N40.1 Benign prostatic hyperplasia with lower urinary tract symptoms; R94.8 Abnormal results of function studies of other organs and systems
CPT/HCPCS: 74177; G0463; Q9967

== ENCOUNTER → 2024-11-14 | Outpatient (CLI) | payer MEDICARE, OTHER ==
[~2024-11-14] MED LIST changes: -IOHEXOL 350 MG/ML 100ML IJ ONE
== END | disposition home or self-care (01) ==
LOC: Rad HDHVI 13:49
PROVIDERS: ATTEND Internal Medicine Cardiovascular Disease
DX: I50.33 Acute on chronic diastolic (congestive) heart failure (principal)
CPT/HCPCS: 93306

== ENCOUNTER → 2024-11-14 | Outpatient (CLI) | payer MEDICARE, OTHER ==
[2024-11-14 12:46] LABS: Basophils # (auto) 0 10 ^3/uL (0-0.2); Eosinophils # (auto) 0.2 10 ^3/uL (0-0.8); Eosinophils % (auto) 4.3 % (0.0-7.0); Hematocrit 40.3 % (41.0-53.0); Hemoglobin 13.4 g/dL (13.5-17.5); Lymphocytes # (auto) 1.1 10 ^3/uL (0.4-5.4); Mean Corpuscular Hemoglobin 30.3 pg (28.0-32.0); Mean Corpuscular Hgb Conc. 33.2 g/dL (32.0-36.0); Mean Corpuscular Volume 91.1 fL (80.0-100.0); Monocytes # (auto) 0.3 10 ^3/uL (0-1.3); Monocytes % (auto) 8.2 % (0.0-12.0); Neutrophils % (auto) 56.5 % (37.0-80.0); Platelet Count (auto) 173 10^3/uL (140-450); Red Blood Cells 4.43 10^6/uL (4.5-5.90); Red Cell Distribution Width 13.6 % (11.8-14.3); White Blood Cell 3.6 10^3/uL (4.4-10.8)
[2024-11-14 13:57] LABS: Alanine Aminotransferase 13 U/L (7-40); Albumin 4.4 g/dL (3.2-4.8); Alkaline Phosphatase 91 U/L (46-116); Anion Gap 8 (5-15); Aspartate Aminotransferase 19 U/L (13-40); BUN/Creatinine Ratio 16.5 (10.0-20.0); Blood Urea Nitrogen 14 mg/dL (9-23); Calcium 9.6 mg/dL (8.7-10.4); Carbon Dioxide 27 mmol/L (20-31); Cholesterol 144 mg/dL (< 200); Glucose 94 mg/dL (74-106); HDL Cholesterol 53 mg/dL (40-59); LDL Cholesterol 76 mg/dL (< 100); Potassium 3.9 mmol/L (3.5-5.1); Sodium 142 mmol/L (136-145); Triglycerides 74 mg/dL (< 150)
[2024-11-14 13:58] LABS: Bilirubin, Direct 0.3 mg/dL (<0.3); Chloride 107 mmol/L (98-107); Total Protein 6.6 g/dL (5.7-8.2)
== END | disposition home or self-care (01) ==
LOC: LAB 12:23
PROVIDERS: ATTEND Internal Medicine Cardiovascular Disease
DX: C61 Malignant neoplasm of prostate (principal); I10 Essential (primary) hypertension; E11.9 Type 2 diabetes mellitus without complications; E55.9 Vitamin D deficiency, unspecified; D64.9 Anemia, unspecified
CPT/HCPCS: 36415; 80048; 80061; 80076; 83036; 84153; 84403; 84443; 85025

== ENCOUNTER → 2024-11-18 | Outpatient (CLI) | payer MEDICARE, OTHER | END | disposition home or self-care (01) | LOC: Rad HDHVI 16:11 | PROVIDERS: ATTEND Internal Medicine Cardiovascular Disease | DX: I50.33 Acute on chronic diastolic (congestive) heart failure (principal); G45.9 Transient cerebral ischemic attack, unspecified | CPT/HCPCS: 93880 ==

== ENCOUNTER → 2025-01-08 | Outpatient (CLI) | payer MEDICARE, OTHER ==
--- NOTE | 2025-01-08 15:19 | DVH ---
PARANASAL SINUSES: INDICATION: SINUSITIS TECHNIQUE: 3 views FINDINGS: The paranasal sinuses are well-aerated. No abnormal soft tissue densities or air-fluid levels are present. Osseous alignment is anatomic. No displaced fractures are demonstrated. IMPRESSION: Normal sinus series
== END | disposition home or self-care (01) ==
LOC: Rad HDHVI 11:58
PROVIDERS: ATTEND Internal Medicine Cardiovascular Disease
DX: J32.9 Chronic sinusitis, unspecified (principal)
CPT/HCPCS: 70220

== ENCOUNTER 2025-03-17 14:53 | Outpatient (CLI) | payer MEDICARE, OTHER ==
--- NOTE | 2025-03-17 15:34 | DVH ---
CLINICAL INDICATION: PAIN POST FALL TECHNIQUE: XY R KNEE 3V XRAY Comparison: XY L KNEE 3V XRAY on DOS: 03/08/24 FINDINGS/IMPRESSION: : There is no evidence of acute fracture or dislocation. Small joint effusion. 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
--- NOTE | 2025-03-17 15:34 | DVH ---
CLINICAL INDICATION: PAIN POST FALL TECHNIQUE: XY L KNEE 3V XRAY Comparison: XY L KNEE 3V XRAY on DOS: 03/08/24 FINDINGS/IMPRESSION: : There is no evidence of acute fracture or dislocation. Soft tissues are unremarkable. Left knee arthroplasty.
== END 2025-03-17 17:00 | disposition home or self-care (01) ==
LOC: Rad HDHVI 14:53
PROVIDERS: ATTEND Internal Medicine Cardiovascular Disease
DX: M17.11 Unilateral primary osteoarthritis, right knee (principal); M25.461 Effusion, right knee; M25.562 Pain in left knee; M25.561 Pain in right knee; Z96.652 Presence of left artificial knee joint
CPT/HCPCS: 73562

== ENCOUNTER 2025-06-03 09:54 | Outpatient (CLI) | payer MEDICARE, OTHER ==
[2025-06-03 10:15] LABS: Urine Protein, UAD TRACE (Negative)
== END 2025-06-03 17:00 | disposition home or self-care (01) ==
LOC: LAB 09:54
PROVIDERS: ATTEND Internal Medicine Cardiovascular Disease
DX: N39.0 Urinary tract infection, site not specified (principal)
CPT/HCPCS: 81001

== ENCOUNTER 2025-06-03 10:23 | Outpatient (CLI) | payer MEDICARE, OTHER ==
[2025-06-03 10:28] VITALS: BP 118/74; PULSE 65; RESP 16; O2SAT 96
[2025-06-03 11:28] VITALS: BP 120/72; PULSE 64; RESP 16; O2SAT 96
== END 2025-06-03 17:00 | disposition home or self-care (01) ==
LOC: CHF HDHVI 10:23
PROVIDERS: ATTEND Internal Medicine Cardiovascular Disease
DX: N39.0 Urinary tract infection, site not specified (principal); M17.11 Unilateral primary osteoarthritis, right knee; E11.9 Type 2 diabetes mellitus without complications; I11.0 Hypertensive heart disease with heart failure; I50.33 Acute on chronic diastolic (congestive) heart failure; F32.A Depression, unspecified; E78.00 Pure hypercholesterolemia, unspecified; J44.9 Chronic obstructive pulmonary disease, unspecified; Z90.49 Acquired absence of other specified parts of digestive tract; Z87.891 Personal history of nicotine dependence; Z98.890 Other specified postprocedural states; Z79.899 Other long term (current) drug therapy; Z96.653 Presence of artificial knee joint, bilateral
CPT/HCPCS: 96365; G0463; J0696